=== PATIENT | male | born 1945 | race Caucasian/White ===

== ENCOUNTER 2016-06-20 13:41 | Inpatient (IN) | payer OTHER ==
[2016-06-20] MEDS ORDERED: DUONEB NEB STA (13:54)
[2016-06-20 14:05] LABS: BASOPHILS # (AUTO) 0.1 K/uL (0-0.2); BASOPHILS % (AUTO) 0.4 % (0.0-3.0); EOSINOPHILS # (AUTO) 0.1 K/ul (0.0-0.7); EOSINOPHILS % (AUTO) 1.2 % (0.0-7.0); HEMATOCRIT 37.4 % (42.0-52.0); HEMOGLOBIN 12.7 g/dl (14.0-18.0); IMMATURE GRANULOCYTE % (AUTO) 0.3 % (0.0-5.0); LYMPHOCYTES # (AUTO) 1.9 K/uL (0.60-3.4); LYMPHOCYTES % (AUTO) 16.3 (10.0-50.0); MEAN CORPUSCULAR HEMOGLOBIN 29.8 pg (27.0-31.0); MEAN CORPUSCULAR VOLUME 87.8 fl (80.0-94.0); MONOCYTES # (AUTO) 1.3 K/uL (0.4-2.0); MONOCYTES % (AUTO) 10.8 (0-10); NEUTROPHILS # (AUTO) 8.4 K/ul (2.0-6.9); PLATELET COUNT 243 10^3/uL (140-440); RED BLOOD COUNT 4.26 10^6/ul (4.70-6.10); WHITE BLOOD COUNT 11.81 K/ul (4.2-10.2)
--- NOTE | 2016-06-20 14:05 | ED.PDOC ---
General ED Provider: Dr. JONO TO JR Chief Complaint: Cough Stated Complaint: brought in by ambulance, complains of fever, sore throat, non productive cough, pain across chest and abddomen. going to wound care in [place] for wound to abdomen [ End ]99.6 67 20 96% 111/83 03/30 Time Seen by Physician: 14:06 Mode of Arrival: Ambulance Information Source: Patient, Family Exam Limitations: Clinical condition Primary Care Provider: CHARLSE DIAMOND Nursing and Triage Documentation Reviewed and Agree: No Review of Systems - Review Of Systems Constitutional: Reports: Fever Eyes: Reports: No symptoms Ears, Nose, Mouth, Throat: Reports: Throat pain Respiratory: Reports: Cough (nonproductive), Wheezing Cardiac: Reports: Chest pain, Edema GI: Reports: Abdominal pain : Reports: No symptoms Musculoskeletal: Reports: Other (left distal calf tenderness) Neurological: Reports: No symptoms Endocrine: Reports: No symptoms Hematologic/Lymphatic: Reports: No symptoms All Other Systems: Other Past Medical History - Past Medical History Previously Healthy: Yes Endocrine: Reports: None Cardiovascular: Reports: Hypertension Respiratory: Reports: COPD Hematological: Reports: None Gastrointestinal: Reports: None Genitourinary: Reports: None Neuro/Psych: Reports: Other (neuropathy) Musculoskeletal: Reports: Other Cancer: Reports: None Other Pertinent Past Medical History: chronic leg numbness, xsmoker - Surgical History General Surgical History: Reports: Orthopedic, Back Surgery - Family History Family History: Reports: Unknown - Social History Smoking Status: Former smoker Hx Substance Use: No Alcohol Screening: None Physical Exam - Physical Exam Appearance: Ill-appearing, Obese Ill-appearing: Mild Pain Distress: Mild Neck: Supple Respiratory: Airway patent Musculoskeletal: Normal strength, ROM intact, Edema, Calf tenderness (slight distal left) Skin: Warm, Dry, Normal color Neurological: Sensation intact, Motor intact, Reflexes intact, Cranial nerves intact, Alert, Oriented Interpretation - EKG Interpretation Time of EKG #1: 14:02 Rate: Normal Rhythm: Sinus Ectopy: None [place]: NL ST Segment: Other (incomplete RBBB) Physician Notification - Case Discussed Physician Notified: Jasperjgum Time of Notification: 17:04 (steroids rocephin admit note pcn allergy) Critical Care Note - Critical Care Note Total Time (mins): 0 Course - Course Hematology/Chemistry: 06/20/16 14:00 06/20/16 14:00 Orders, Labs, Meds: Lab Review 06/20/16 14:00 WBC 11.81 H RBC 4.26 L Hgb 12.7 L Hct 37.4 L MCV 87.8 MCH 29.8 MCHC 34.0 RDW Coeff of Alex 14.5 Plt Count 243 Immature Gran % (Auto) 0.3 Neut % (Auto) 71.0 Lymph % (Auto) 16.3 [place] % (Auto) 10.8 H Eos % (Auto) 1.2 Baso % (Auto) 0.4 Immature Gran # (Auto) 0.0 Neut # 8.4 H Lymph # 1.9 [place] # 1.3 Eos # 0.1 Baso # 0.1 D-Dimer (Manual) 814.00 Sodium 139 Potassium 3.1 L Chloride 90 L Carbon Dioxide 39 H Anion Gap 13.1 BUN 15 Creatinine 1.09 Estimated GFR (MDRD) 66.00 BUN/Creatinine Ratio 13.76 Glucose 115 Calcium 8.9 Total Bilirubin 0.51 AST 16 ALT 16 Alkaline Phosphatase 71 Total Creatine Kinase 42 Troponin I 0.0200 B-Natriuretic Peptide 15 Total Protein 7.7 Albumin 2.7 L Globulin 5.0 Albumin/Globulin Ratio 0.54 Procalcitonin 0.05 Orders Category Date Time Status EKG-(ED ONLY) Stat CARDIO 06/20/16 13:46 Completed NEBULIZER TREATMENT Stat CARDIO 06/20/16 13:54 Completed NPO REMINDER: IMAGING ONCE CARE 06/20/16 15:07 Active ED HUMAN RESOURCES ADMINISTRATOR APPLIED .ONCE EMERGENCY 06/20/16 13:46 Active ED IV/MEDIPORT/POWERPORT .ONCE EMERGENCY 06/20/16 13:46 Active B-TYPE NATRIURETIC PEPTIDE Stat LAB 06/20/16 14:00 Completed CBC W/ AUTO DIFF Stat LAB 06/20/16 14:00 Completed COMPREHENSIVE METABOLIC PANEL Stat LAB 06/20/16 14:00 Completed CREATINE KINASE Stat LAB 06/20/16 14:00 Completed D-DIMER Stat LAB 06/20/16 14:00 Completed PROCALCITONIN Stat LAB 06/20/16 14:00 Completed TROPONIN I Stat LAB 06/20/16 14:00 Completed 0.9 % Sodium Chloride [Saline Flush] MEDS 06/20/16 13:46 Active 1 syr IVF PRN PRN Ceftriaxone Sodium [Rocephin] MEDS 06/20/16 16:53 Discontinued 1 gm .ROUTE .STK-MED ONE Ceftriaxone Sodium [Rocephin] 1 gm MEDS 06/20/16 16:32 Active 0.9 % Sodium Chloride [Sodium Chloride] 50 ml IV ONCE Ipratropium/Albuterol Neb [Duoneb] MEDS 06/20/16 13:54 Discontinued 1 vial NEB ONCE STA Methylprednisolone Sod Succ/Pf [Solu-Medrol 125 mg] MEDS 06/20/16 16:32 Discontinued 125 mg IVP ONCE STA Potassium Chloride [K-Dur] MEDS 06/20/16 16:32 Discontinued 40 meq PO ONCE STA CHEST, 1V AP ONLY Stat RADS 06/20/16 13:[address] CHEST PE PROTOCOL Stat RADS 06/20/16 15:06 Completed Medications Generic Name Dose Route Start Last Admin Trade Name Freq PRN Reason Stop Dose Admin Ceftriaxone Sodium 1 gm/ 50 mls @ 75 mls/hr 06/20/16 16:32 06/20/16 17:00 Sodium Chloride IV 06/20/16 17:11 75 mls/hr ONCE STA Administration Sodium Chloride 1 syr 06/20/16 13:46 Saline Flush IVF PRN PRN To flush IV Discontinued Medications Generic Name Dose Route Start Last Admin Trade Name Freq PRN Reason Stop Dose Admin Albuterol/Ipratropium 1 vial 06/20/16 13:54 06/20/16 14:03 Duoneb NEB 06/20/16 13:55 1 vial ONCE STA Administration Methylprednisolone Sodium Succinate 125 mg 06/20/16 16:32 06/20/16 16:59 Solu-Medrol 125 Mg IVP 06/20/16 16:33 125 mg ONCE STA Administration Potassium Chloride 40 meq 06/20/16 16:32 06/20/16 17:03 K-Dur PO 06/20/16 16:33 40 meq ONCE STA Administration Vital Signs: Temp Pulse Resp BP Pulse Ox 06/20/16 13:41 99.6 F 67 20 111/82 96 Departure - Departure Time of Disposition: 17:05 Disposition: ADMITTED INPATIENT Discharge Problem: Pneumonia Qualifiers: Pneumonia type: due to unspecified organism Laterality: left Lung location: unspecified part of lung Qualifier Code: (J18.9) Pneumonia, unspecified organism Condition: Stable Pt referred to PMD for follow-up: No (hospitalist) Allergies/Adverse Reactions: Allergies Penicillins Adverse Reaction (Verified 06/20/16 13:49) Home Medications: Ambulatory Orders Citalopram Hydrobromide [Citalopram HBr] 20 mg PO DAILY 08/20/14 Gabapentin 300 mg PO TID 08/20/14 Hydrochlorothiazide 25 mg PO DAILY 08/20/14 Levofloxacin [Levaquin] 500 mg PO DAILY 08/20/14 Ranitidine HCl 150 mg PO BID 08/20/14 Tramadol HCl 50 mg PO Q6H PRN 08/20/14 Albuterol Sulfate [Proair Hfa] 2 puff IH Q4H 06/20/16 Atorvastatin Calcium [Lipitor] 10 mg PO BEDTIME 06/20/16 Budesonide/Formoterol Fumarate [Symbicort 160-4.5 Mcg Inhaler] 1 puff IH BID 05/04 Memantine HCl [Namenda] 28 mg PO DAILY 06/20/16
--- NOTE | 2016-06-20 14:28 | DI ---
EXAM: Chest one view, frontal view only. HISTORY: Chest pain. COMPARISON: 01/28/2015. FINDINGS: The heart size is normal. There is no pulmonary vascular congestion. Mild peribronchial thickening and bilateral reticulonodular opacities are present. Otherwise, the lungs are clear. N o pleural effusion or pneumothorax is seen. No acute osseous abnormality is identified. Old right- sided rib fractures noted. IMPRESSION: Peribronchial thickening and reticulonodular opacities suggesting small airways infection/inflammati on. Follow-up is recommended.
[2016-06-20 14:33] LABS: ALBUMIN 2.7 g/dL (3.4-5.0); ALBUMIN/GLOBULIN RATIO 0.54; ANION GAP 13.1; BILIRUBIN,TOTAL 0.51 mg/dL (0.00-1.20); BUN/CREATININE RATIO 13.76; CALCIUM 8.9 mg/dL (8.2-10.2); CREATININE 1.09 mg/dL (0.60-1.10); POTASSIUM 3.1 mmol/L (3.5-5.1); TOTAL PROTEIN 7.7 g/dL (5.8-8.1); TROPONIN I 0.02 ng/ml (0.0000-0.4000)
--- NOTE | 2016-06-20 16:14 | CT ---
EXAM: CTA of the chest. History: Short of breath, positive D-dimer. Comparison: Chest radiograph 06/20/2016 Technique: Multiplanar CT images through the thorax were obtained following administration of IV co ntrast. MIP images and 3-D reconstructions were also provided. Findings: Heart is mildly enlarged. Great vessels are unremarkable. No pulmonary arterial filling defects. 1.6 cm right axillary lymph node. No enlarged left axillary lymph nodes. No pathological ly enlarged mediastinal lymph nodes. No pathologically enlarged hilar lymph nodes. Lingular atelectasis and infiltrate. Patchy bilateral ground-glass infiltrates, bronchial wall thic kening and scattered micronodules some with tree-in-bud configuration. There is some mucus plugging within the left lower lobe and there is nodular area of consolidation within the left lower lobe. No pleural fluid and no pneumothorax. Within the visualized upper abdomen, status post cholecystectomy. No acute osseous abnormalities. Degenerative changes of the spine. Impression: 1. No pulmonary embolism. 2. Lingular atelectasis and pneumonia. 3. Bilateral ground-glass infiltrates and bilateral micronodules most likely infectious or inflamma tory etiology but would recommend followup study after treatment of the acute condition to exclude a ny underlying neoplastic etiology. 4. Left lower lobe nodular area of consolidation probably represents pneumonia but also recommend f ollowup after treatment. 5. Right axillary lymphadenopathy could be infectious/inflammatory or neoplastic. Further evaluati on recommended. 6. Mild cardiomegaly.
[2016-06-20] MEDS ORDERED: ROCEPHIN 1 GM in SODIUM CHLORIDE 50 ML IV STA (16:32)
[2016-06-20] MEDS ORDERED: K-DUR PO STA (16:32)
[2016-06-20] MEDS ORDERED: SOLU-MEDROL 125 MG IVP STA (16:32)
[2016-06-20] MEDS ORDERED: ROCEPHIN ONE (16:53)
[2016-06-20] MEDS ORDERED: TYLENOL PO PRN (17:07)
[2016-06-20] MEDS ORDERED: ULTRAM PO PRN (17:11)
[2016-06-20 18:07] VITALS: BMI 40.6
[2016-06-20] MEDS: SODIUM CHLORIDE 1,000 ML IV SCH (18:31)
[2016-06-20] MEDS: PROAIR HFA IH SCH ×2 (18:58→21:39)
[2016-06-20] MEDS ORDERED: NON-FORMULARY MEDICATION (Ranitidine Hcl [Ranitidine Hcl] 150 MG) PO SCH ×22 (21:00)
[2016-06-20] MEDS ORDERED: NON-FORMULARY MEDICATION (Gabapentin [Gabapentin] 300 MG) PO SCH (21:00)
[2016-06-20] MEDS: SYMBICORT 160-4.5 MCG INHALER IH SCH (21:39)
[2016-06-20] MEDS: NEURONTIN PO SCH (21:39)
[2016-06-20] MEDS: LIPITOR PO SCH (21:39)
[2016-06-20 23:27] LABS: TROPONIN I 0.032 ng/ml (0.0000-0.4000)
[2016-06-21] MEDS: PROAIR HFA IH SCH ×5 (00:47→16:51)
[2016-06-21] MEDS: NEURONTIN PO SCH ×3 (05:31→20:42)
[2016-06-21] MEDS: ZANTAC PO SCH ×2 (05:32→16:51)
[2016-06-21 07:42] LABS: BASOPHILS % (AUTO) 0.2 % (0.0-3.0); HEMOGLOBIN 12.6 g/dl (14.0-18.0); IMMATURE GRANULOCYTE % (AUTO) 0.6 % (0.0-5.0); LYMPHOCYTES # (AUTO) 1.2 K/uL (0.60-3.4); LYMPHOCYTES % (AUTO) 9.3 (10.0-50.0); MEAN CORPUSCULAR HEMOGLOBIN 29.9 pg (27.0-31.0); MEAN CORPUSCULAR HGB CONC 34.1 (31.8-35.4); MEAN CORPUSCULAR VOLUME 87.7 fl (80.0-94.0); MONOCYTES # (AUTO) 0.6 K/uL (0.4-2.0); MONOCYTES % (AUTO) 4.8 (0-10); NEUTROPHILS # (AUTO) 11.1 K/ul (2.0-6.9); NEUTROPHILS % (AUTO) 85.1; PLATELET COUNT 266 10^3/uL (140-440); RED BLOOD COUNT 4.22 10^6/ul (4.70-6.10); WHITE BLOOD COUNT 13.02 K/ul (4.2-10.2)
[2016-06-21 08:10] LABS: ALBUMIN 2.6 g/dL (3.4-5.0); ALBUMIN/GLOBULIN RATIO 0.52; ANION GAP 12.3; BILIRUBIN,TOTAL 0.4 mg/dL (0.00-1.20); BUN/CREATININE RATIO 19.78; CREATININE 0.91 mg/dL (0.60-1.10); POTASSIUM 3.3 mmol/L (3.5-5.1); TOTAL PROTEIN 7.6 g/dL (5.8-8.1); TROPONIN I 0.018 ng/ml (0.0000-0.4000)
[2016-06-21] MEDS: NAMENDA PO SCH (08:48)
[2016-06-21] MEDS: LOVENOX SUBCUT SCH (08:48)
[2016-06-21] MEDS: ROCEPHIN 1 GM in SODIUM CHLORIDE 50 ML IV SCH (08:48)
[2016-06-21] MEDS: CELEXA PO SCH (08:48)
[2016-06-21] MEDS: SODIUM CHLORIDE 1,000 ML IV SCH ×2 (08:48→22:32)
[2016-06-21] MEDS: HYDROCHLOROTHIAZIDE PO SCH (08:48)
[2016-06-21] MEDS: SYMBICORT 160-4.5 MCG INHALER IH SCH ×2 (08:49→20:43)
--- NOTE | 2016-06-21 10:50 | PCM.PROG ---
Attending Provider: ATTENDING PROVIDER: Dr. BRANDON UQINTERO DATE OF SERVICE: 06/21/16 SUBJECTIVE: This 70 year old WHITE/ M was hospitalized 06/20/16. The patient is admitted with COPD exacerbation and lingular pneumonia. The antibiotic helped. He is still coughing but better. No fever or chills now. REVIEW OF SYSTEMS: CONSTITUTIONAL: No fever, no chills. ENDOCRINE: No weight loss or weight gain. HEENT: No sinus drainage, no sore throat. CVS: No angina symptoms. No CHF symptoms. No palpitations. No atypical chest pain for CAD. No shortness of breath. RESPIRATORY: Cough. No hemoptysis. GI: No melena. No abdominal pain. No nausea, no vomiting. : No hematuria. No polyuria. SKIN: No rash. No wounds. MUSCULOSKELETAL: No pain. TIMBER WATCHMAN: No blackout, no dizziness. No headache. No double vision. PSYCHIATRIC: Not anxious; no depression. No suicidal thoughts. No homicidal thoughts. PHYSICAL EXAMINATION: GENERAL: Lying in bed in no distress. VITAL SIGNS: Temperature 97.3 F, Pulse 59, Respiratory Rate 20, BP 104/60, Pulse Ox 97% HEENT: Normocephalic, atraumatic. Mucosa is dry, pallor positive. NECK: No JVP, no carotid bruit. No lymphadenopathy. CARDIAC: S1, S2, no S3. No murmur, gallop or regurgitation. LUNGS: Expiratory wheeze is present. ABDOMEN: Soft, non-tender. Bowel sounds active. No rigidity, guarding or CVA tenderness. EXTREMITIES: No clubbing, cyanosis or edema. NEUROLOGIC: Awake, alert and oriented x3. LYMPHATIC: No palpable lymph nodes SKIN: Not dry. Intact. MUSCULOSKELETAL: No joint swelling. LAB REVIEW: 06/21/16 07:23 06/21/16 07:23: WBC 13.02 H, RBC 4.22 L, Hgb 12.6 L, Hct 37.0 L, MCV 87.7, MCH 29.9, MCHC 34.1, RDW Coeff of Alex 14.3, Plt Count 266, Immature Gran % (Auto) 0.6, Neut % (Auto) 85.1, Lymph % (Auto) 9.3 L, [place] % (Auto) 4.8, Eos % (Auto) 0.0, Baso % (Auto) 0.2, Immature Gran # (Auto) 0.1, Neut # 11.1 H, Lymph # 1.2, [place] # 0.6, Eos # 0.0, Baso # 0.0 06/20/16 23:03: Total Creatine Kinase 56, Troponin I 0.0320 ASSESSMENT: 1. Pneumonia, lingular, community acquired. 2. COPD. 3. Anemia. 4. Hypertension. 5. Dyslipidemia. PLAN: 1. Continue Rocephin 2. Continue Duonebs q.4 to 6hr 3. Solu-Medrol 40 mg q.8 4. Lovenox for DVT prophylaxis Plan and coordination of the patient's care discussed in the presence of Linux Programmer and nurse. CONDITION: Stable SCRIBED BY: ALVERTO CAICEDO Breaker Mechanic scribed while in presence of service performed by Dr. BRANDON QUINTERO on 06/21/16 ([id number])
[2016-06-21] MEDS: DUONEB NEB SCH ×3 (11:07→22:26)
[2016-06-21] MEDS: SOLU-MEDROL 40 MG IVP SCH ×2 (12:25→20:06)
[2016-06-21] MEDS: LIPITOR PO SCH (20:43)
[2016-06-22] MEDS: SOLU-MEDROL 40 MG IVP SCH ×3 (04:24→20:18)
[2016-06-22] MEDS: DUONEB NEB SCH ×4 (05:01→23:18)
[2016-06-22 05:04] LABS: BASOPHILS % (AUTO) 0.2 % (0.0-3.0); HEMATOCRIT 34.7 % (42.0-52.0); HEMOGLOBIN 11.8 g/dl (14.0-18.0); IMMATURE GRANULOCYTE % (AUTO) 0.6 % (0.0-5.0); LYMPHOCYTES # (AUTO) 1.4 K/uL (0.60-3.4); LYMPHOCYTES % (AUTO) 8.8 (10.0-50.0); MEAN CORPUSCULAR HEMOGLOBIN 29.9 pg (27.0-31.0); MEAN CORPUSCULAR VOLUME 88.1 fl (80.0-94.0); MONOCYTES # (AUTO) 0.8 K/uL (0.4-2.0); MONOCYTES % (AUTO) 5.2 (0-10); NEUTROPHILS # (AUTO) 13.2 K/ul (2.0-6.9); NEUTROPHILS % (AUTO) 85.2; PLATELET COUNT 272 10^3/uL (140-440); RED BLOOD COUNT 3.94 10^6/ul (4.70-6.10)
[2016-06-22 05:24] LABS: ALBUMIN 2.4 g/dL (3.4-5.0); ALBUMIN/GLOBULIN RATIO 0.5; ANION GAP 14.1; BILIRUBIN,TOTAL 0.17 mg/dL (0.00-1.20); BUN/CREATININE RATIO 30.68; CALCIUM 8.7 mg/dL (8.2-10.2); CREATININE 0.88 mg/dL (0.60-1.10); POTASSIUM 4.1 mmol/L (3.5-5.1); TOTAL PROTEIN 7.2 g/dL (5.8-8.1)
[2016-06-22] MEDS: ZANTAC PO SCH ×2 (06:01→16:51)
[2016-06-22] MEDS: NEURONTIN PO SCH ×3 (06:01→20:19)
[2016-06-22] MEDS: BACTRIM DS 800/160 MG PO SCH ×2 (09:33→20:19)
[2016-06-22] MEDS: CELEXA PO SCH (09:33)
[2016-06-22] MEDS: HYDROCHLOROTHIAZIDE PO SCH (09:33)
[2016-06-22] MEDS: SYMBICORT 160-4.5 MCG INHALER IH SCH ×2 (09:34→20:19)
[2016-06-22] MEDS: LOVENOX SUBCUT SCH (09:34)
[2016-06-22] MEDS: ROCEPHIN 1 GM in SODIUM CHLORIDE 50 ML IV SCH (09:34)
[2016-06-22] MEDS: NAMENDA PO SCH (09:34)
--- NOTE | 2016-06-22 11:00 | DI ---
EXAM: Single view of the chest. History: Pneumonia, follow up. Comparison: Chest radiograph 06/20/2016, chest CT 06/20/2016 Findings: Heart is mildly enlarged. No definite acute infiltrates identified radiographically. No appreciable pleural fluid and no pneumothorax. No acute osseous abnormalities. Impression: No definite acute infiltrates identified radiographically. Consider follow-up with ches t CT to assure resolution of the previously described lingular infiltrate as this could be obscured radiographically.
[2016-06-22] MEDS: MIRALAX PO SCH (11:03)
[2016-06-22] MEDS: SODIUM CHLORIDE 1,000 ML IV SCH (11:09)
--- NOTE | 2016-06-22 13:00 | PCM.PROG ---
Attending Provider: ATTENDING PROVIDER: Dr. BRANDON QUINTERO DATE OF SERVICE: 06/22/16 SUBJECTIVE: This 70 year old WHITE/ M was hospitalized 06/20/16. The patient has no cough, no shortness of breath, no congestion. No complaints today. The patient is usually wheelchair bound and bed bound secondary to medical problems. REVIEW OF SYSTEMS: CONSTITUTIONAL: No fever, no chills. ENDOCRINE: No weight loss or weight gain. HEENT: No sinus drainage, no sore throat. CVS: No angina symptoms. No CHF symptoms. No palpitations. No atypical chest pain for CAD. No shortness of breath. RESPIRATORY: No cough, no hemoptysis. GI: No melena. No abdominal pain. No nausea, no vomiting. : No hematuria. No polyuria. SKIN: No rash. No wounds. MUSCULOSKELETAL: No pain. CUT FILE CLERK: No blackout, no dizziness. No headache. No double vision. PSYCHIATRIC: Not anxious; no depression. No suicidal thoughts. No homicidal thoughts. PHYSICAL EXAMINATION: GENERAL: Lying in bed in no distress. VITAL SIGNS: Temperature 97.4 F, Pulse 71, Respiratory Rate 24, BP 116/63, Pulse Ox 96% HEENT: Normocephalic, atraumatic. Mucosa is dry, pallor positive. NECK: No JVP, no carotid bruit. No lymphadenopathy. CARDIAC: S1, S2, no S3. No murmur, gallop or regurgitation. LUNGS: Decreased breath sounds with basilar crackles. ABDOMEN: Soft, non-tender. Bowel sounds active. Morbidly obese. No rigidity, guarding or CVA tenderness. EXTREMITIES: No clubbing, cyanosis or edema. NEUROLOGIC: Awake, alert and oriented x3. LYMPHATIC: No palpable lymph nodes SKIN: Not dry. Intact. MUSCULOSKELETAL: No joint swelling. LAB REVIEW: 06/22/16 04:08 06/22/16 04:08 06/22/16 04:08: WBC 15.50 H, RBC 3.94 L, Hgb 11.8 L, Hct 34.7 L, MCV 88.1, MCH 29.9, MCHC 34.0, RDW Coeff of Alex 14.3, Plt Count 272, Immature Gran % (Auto) 0.6, Neut % (Auto) 85.2, Lymph % (Auto) 8.8 L, [place] % (Auto) 5.2, Eos % (Auto) 0.0, Baso % (Auto) 0.2, Immature Gran # (Auto) 0.1, Neut # 13.2 H, Lymph # 1.4, [place] # 0.8, Eos # 0.0, Baso # 0.0, Sodium 141, Potassium 4.1, Chloride 99, Carbon Dioxide 32 H, Anion Gap 14.1, BUN 27 H, Creatinine 0.88, Estimated GFR ( MDRD) 85.00, BUN/Creatinine Ratio 30.68, Glucose 160 H, Calcium 8.7, Total Bilirubin 0.17, AST 24, ALT 17, Alkaline Phosphatase 72, Total Protein 7.2, Albumin 2.4 L, Globulin 4.8, Albumin/Globulin Ratio 0.50 ASSESSMENT: 1. Pneumonia, lingular, community acquired. 2. COPD. 3. Anemia. 4. Hypertension. 5. Dyslipidemia. PLAN: 1. Continue Rocephin 2. Duonebs 3. Solumedrol 4. Repeat chest x-ray Plan and coordination of the patient's care discussed in the presence of Director Of Housing and nurse. CONDITION: Stable SCRIBED BY: ALVERTO CAICEDO Spray Gun Sizer scribed while in presence of service performed by Dr. BRANDON QUINTERO on 06/22/16 ([id number])
[2016-06-22] MEDS: LIPITOR PO SCH (20:19)
[2016-06-23] MEDS: SODIUM CHLORIDE 1,000 ML IV SCH
[2016-06-23] MEDS: SOLU-MEDROL 40 MG IVP SCH ×2 (04:38→13:01)
[2016-06-23] MEDS: DUONEB NEB SCH ×2 (05:04→11:14)
[2016-06-23 05:19] LABS: BASOPHILS % (AUTO) 0.2 % (0.0-3.0); HEMATOCRIT 35.5 % (42.0-52.0); HEMOGLOBIN 11.8 g/dl (14.0-18.0); LYMPHOCYTES # (AUTO) 1.6 K/uL (0.60-3.4); LYMPHOCYTES % (AUTO) 12.5 (10.0-50.0); MEAN CORPUSCULAR HEMOGLOBIN 29.6 pg (27.0-31.0); MEAN CORPUSCULAR HGB CONC 33.2 (31.8-35.4); MEAN CORPUSCULAR VOLUME 89.2 fl (80.0-94.0); MONOCYTES # (AUTO) 0.9 K/uL (0.4-2.0); MONOCYTES % (AUTO) 7.2 (0-10); NEUTROPHILS % (AUTO) 79.1; PLATELET COUNT 297 10^3/uL (140-440); RED BLOOD COUNT 3.98 10^6/ul (4.70-6.10); WHITE BLOOD COUNT 12.57 K/ul (4.2-10.2)
[2016-06-23 05:43] LABS: ALBUMIN 2.4 g/dL (3.4-5.0); ALBUMIN/GLOBULIN RATIO 0.59; ANION GAP 12.4; BILIRUBIN,TOTAL 0.18 mg/dL (0.00-1.20); BUN/CREATININE RATIO 29.21; CALCIUM 8.8 mg/dL (8.2-10.2); CREATININE 0.89 mg/dL (0.60-1.10); POTASSIUM 4.4 mmol/L (3.5-5.1); TOTAL PROTEIN 6.5 g/dL (5.8-8.1)
[2016-06-23] MEDS: ZANTAC PO SCH (05:50)
[2016-06-23] MEDS: NEURONTIN PO SCH ×2 (05:50→12:31)
[2016-06-23] MEDS: LOVENOX SUBCUT SCH (08:29)
[2016-06-23] MEDS: NAMENDA PO SCH (08:30)
[2016-06-23] MEDS: CELEXA PO SCH (08:30)
[2016-06-23] MEDS: BACTRIM DS 800/160 MG PO SCH (08:30)
[2016-06-23] MEDS: SYMBICORT 160-4.5 MCG INHALER IH SCH (08:30)
[2016-06-23] MEDS: ROCEPHIN 1 GM in SODIUM CHLORIDE 50 ML IV SCH (08:30)
[2016-06-23] MEDS: MIRALAX PO SCH (08:30)
[2016-06-23] MEDS: HYDROCHLOROTHIAZIDE PO SCH (08:31)
[2016-06-23 09:55] VITALS: BP 118/56; TEMP 98.2
--- NOTE | 2016-06-25 09:40 | HP ---
DATE OF SERVICE: 06/20/16 REASON FOR HOSPITALIZATION: Cough, congestion and fever. HISTORY OF PRESENT ILLNESS: The patient is a 70 year old male who was recently seen by Em Aldana. He came to the emergency room with cough and congestion getting yellow/green phlegm and fever and sore throat. He was evaluated in the emergency room by Dr. Morrell. The patient also had pain across the chest and abdomen, was found that patient apparently has abdominal would for which patient is going to the [facility] in [place]. Dr. Morrell saw the patient in the emergency room and in the processes of the evaluation WBC was elevated, D-dimer was high 1056, potassium was 3.1, BNP 15, CT of the chest with IV contrast was done which showed left lower lobe pneumonia, lingular pneumonia, inflammatory process can not exclude neoplastic area in the lungs. At that time the patient was admitted to the hospital with community acquired pneumonia for the IV antibiotics and breathing treatments. REVIEW OF SYSTEMS: CONSTITUTIONAL: No night sweats. Weakness and tiredness. No fever or chills. HEENT: Eyes: No visual changes. No eye pain. No eye discharge. ENT: No runny nose. No epistaxis. No sinus pain. No sore throat. No odynophagia. No ear pain. No congestion. RESPIRATORY: Coughing with yellow/green phlegm. No hemoptysis. CARDIOVASCULAR: No angina symptoms. No CHF symptoms. No atypical chest pain for CAD. No palpitations. Shortness of breath. Chest pain on the right side with breathing. GASTROINTESTINAL: No abdominal pain. No nausea or vomiting. No diarrhea or constipation. No hematemesis. No hematochezia. GENITOURINARY: No urgency. No frequency. No dysuria. No hematuria. No obstructive symptoms. No discharge. No pain. No significant abnormal bleeding. MUSCULOSKELETAL: No musculoskeletal pain. No joint swelling. No arthritis. NEUROLOGICAL: No headache. No neck pain. No syncope. No seizures. No dizziness. PSYCHIATRIC: Not anxious. No depression. No suicidal thoughts. No homicidal thoughts. SKIN: No rash. No lesions. No wounds. ENDOCRINE: No unexplained weight loss. No weight gain. HEMATOLOGIC/LYMPHATIC: No anemia. No purpura. No petechiae. No prolonged or excessive bleeding. No palpable lymph nodes. PERSONAL/FAMILY/SOCIAL HISTORY: The patient does not smoke or drink. Doesn't ambulate much secondary to the severe arthritis and back pain. Uses a wheelchair. Family history is significant for the heart problems. PAST MEDICAL/SURGICAL PROBLEMS: Coronary artery disease, enlarged heart Dyslipidemia Hypertension Dependant leg edema COPD History of pneumonia Hiatal hernia Osteoarthritis Depression Back surgery, 2010 Cholecystectomy Appendectomy Bilateral cataract surgery MEDICATIONS: Neurontin Zantac Levaquin Hydrochlorothiazide Citalopram Tramadol Albuterol Namenda Lipitor Symbicort ALLERGIES: Penicillin PHYSICAL EXAMINATION: VITAL SIGNS: Blood pressure 111/82, respiratory rate 20, heart rate 67 and temperature 99.6. HEENT: Head normocephalic, atraumatic. Eyes: Extraocular muscles are intact. Pupils are equal, round and reactive to light and accommodation. Ears: No lesions. Nose appeared normal. Throat: No exudate or erythema. Mucosa dry. NECK: Supple. No JVD, no carotid bruit. No lymphadenopathy or thyromegaly. LUNGS: Bilateral entry is decreased and basilar crackles. Mild expiratory wheeze. Percussion note normal. Chest symmetrical. HEART: S1, S2, no S3. No murmurs. No cyanosis or clubbing. No ascites. Pulses: Dorsalis pedis and posterior tibial pulses +1 to +2 both sides. ABDOMEN: Obese. Small hernia on the abdominal wall which is oozing clear to yellow drainage will be taking the cultures. Soft. Nontender. Bowel sounds active. No CVA tenderness. No mass felt. EXTREMITIES: No edema. Full range of motion of all extremities, equal. NEUROLOGIC: No focal deficit. Cranial nerves II through XII are grossly intact. No headache, no double vision or headache. SKIN: Not dry. Intact. Turgor - normal. LYMPHATIC: No palpable lymph nodes/no lymphedema. MUSCULOSKELETAL: Normal joints with no swelling. Muscle tone is normal. LABS: Sodium 139, potassium 3.1, chloride 90, bicarb 39, BUN 15, creatinine 1.09, WBC 11.81, hgb 12.7, hct 37.4, plt count 243 and D-dimer 1056. ASSESSMENT: 1. Community acquired pneumonia 2. COPD exacerbation secondary to the community acquired pneumonia 3. Elevated D-dimer 4. Negative CT 5. Angiogram 6. History of hypertension 7. LVH 8. Osteoarthritis 9. Obesity 10.Anterior abdominal wall ulcer which is being taken care of by the [place] [facility] PLAN: 1. Admit to the regular floor 2. CBC and CMP today and daily 3. Cardiac enzymes and troponin 4. Rocephin 1 gram daily 5. DUO NEBS 6. Solu-Medrol 40mg Q 8 hours 7. Wound Cultures Will follow the patient in daily rounds. TIME SPENT: More than 70 minutes. MARU
--- NOTE | 2016-07-03 15:44 | DS ---
DATE OF SERVICE: 06/23/16 FINAL DIAGNOSIS: 1. Community acquired pneumonia left lower lobe right lower lobe with ground glass infiltrate 2. COPD exacerbation secondary to the pneumonia 3. Elevated D-Dimer, negative for the CT chest with the P protocol 4. Hypertension 5. Peripheral neuropathy 6. Dyslipidemia 7. GERD 8. Depression 9. Cholecystectomy 10.Back surgery 11.Anterior abdominal wall ulcer which has grown staphylococcus Aureus and the patient being followed by the [facility] in [place]. 12. Alzheimer's Dementia 13. Anemia DISCHARGE INSTRUCTIONS: Discharge the patient home. Followup with Em Aldana in 4-5 days. Keep followup with Wound Care as scheduled. Continue the rest of the home medication MEDICATIONS AT DISCHARGE: Albuterol Lipitor Symbicort Citalopram Neurontin Hydrochlorothiazide Namenda Prednisone Ranitidine NEW PRESCRIPTIONS: Keflex 500mg twice a day for 7 day Prednisone 10mg twice a day for 5 days Bactrim DS twice a day 5 days DIET INSTRUCTIONS: Cardiac and healthy ACTIVITY: As much as tolerated. The patient is not much mobile secondary to the back pains and arthritis. SMOKING: Former Smoker DISEASE SPECIFIC EDUCATION: Antibiotics and antibiotic induced diarrhea been discussed Wound, infection and sepsis been discussed. HOSPITAL COURSE: Yury Armstrong who is a 70 year old male came to the emergency room with cough , congestion ,fever and getting yellow/green phlegm. He was seen in the emergency room by Dr. Morrell and CT of the chest done which showed the lingular pneumonia in multiple areas where the questionable neoplastic etiology was not ruled out. At that time the patient was admitted to the hospitalized antibiotics and the breathing treatments. The patient was put on Rocephin 1gram daily, breathing treatment and DUO NEBS and Solu-Medrol Q 8 hours. Home medications were continued. Gradually he was started feeling better and coughing was improved. The CT scan findings of questionable neoplastic granulations were discussed with the patient multiple times and verbalized understanding. The patient has a history of smoking but now he quit but in review of smoking history and CT scan findings highly suspicious for malignancy which was discussed with the patient in detail an clearly explained to him that he needs to be seen by the learning support teacher for further evaluation. The patient has minimal ambulation secondary to the multiple problems. His BNP was normal 15 , hgb 11.5. A repeat chest x-ray was done which was looking better. As the patient was doing fine and did not have any problems the patient is discharged home. I did see his previous records in the hospital which did show the orders from Dr. Leon who is a learning support teacher for a I assume the patient has already been seen by Dr. Leon in the past. We will be releasing all the information to Em Aldana who is the primary MD for the patient. TIME SPENT: More than 50 minutes. MARU
== END 2016-06-23 14:30 | disposition home or self-care (01) | DRG 194 ==
LOC: ED 13:41 → MEDSURG A 17:09
PROVIDERS: ADMIT Emergency Medicine; ATTEND Emergency Medicine
DX: J18.9 Pneumonia, unspecified organism (principal); J44.1 Chronic obstructive pulmonary disease with (acute) exacerbation; L98.499 Non-pressure chronic ulcer of skin of other sites with unspecified severity; A49.01 Methicillin susceptible Staphylococcus aureus infection, unspecified site; R79.1 Abnormal coagulation profile; I10 Essential (primary) hypertension; E78.5 Hyperlipidemia, unspecified; K21.9 Gastro-esophageal reflux disease without esophagitis; D64.9 Anemia, unspecified; E66.01 Morbid (severe) obesity due to excess calories; F32.9 Major depressive disorder, single episode, unspecified; G62.9 Polyneuropathy, unspecified; M79.662 Pain in left lower leg; R50.9 Fever, unspecified; R06.2 Wheezing; Z87.891 Personal history of nicotine dependence; Z79.899 Other long term (current) drug therapy; Z87.01 Personal history of pneumonia (recurrent)
CPT/HCPCS: 36415; 80053; 82550; 83880; 84145; 84484; 85025; 85379; 87040; 87070; 87186; 93005; 93010; 94640; 96365; 96375; 99223; 99233; 99239; 99284